=== PATIENT | male | born 2005 | race Caucasian/White ===

== ENCOUNTER 2024-12-30 02:00 | Emergency (ER) | payer BC, SELFPAY ==
--- NOTE | ~2024-12-30 | CT_ITS ---
CT of the Abdomen and Pelvis: Indication: Abdominal pain Technique: 2.5 mm axial scans were obtained through the abdomen and pelvis following intravenous adm inistration of 100 cc of Omnipaque 350. Dose reduction technique was used on this scan by utilizing a utomated exposure control and iterative reconstruction technique. The dose-length product (DLP) was 5 14.18 mGy-cm. Findings: Scans through the lung bases are unremarkable. The liver, spleen, pancreas, gallbladder, adrenals and kidneys are within normal limits. No evidence of aortic aneurysm. No lymphadenopathy. No bowel obstruction or bowel wall thickening. There is no evidence to suggest acute appendicitis. Images through the pelvis were performed. Urinary bladder unremarkable. No pelvic mass seen. No ascit es. Impression: No significant abnormalities seen. Reviewed, dictated and finalized at location . Impression: No significant abnormalities seen.
[2024-12-30 02:00] VITALS: BP 154/87; PULSE 64; RESP 17; TEMP 37; O2SAT 99
[2024-12-30 03:06] VITALS: BP 133/69; PULSE 66; RESP 14; O2SAT 100
--- OUTSIDE RECORDS SUMMARY | 2024-12-30 04:46 | XMS_ITS ---
Author Organization [facility] Address [address], [place] [address] Care Team Providers Care Portfolio Lead Name Role Phone Igor Alvarenga Primary Care Provider Kristin Dow Unavailable [phone] Allergies Allergen (clinical drug ingredient) Drug/Non Drug Allergy documented on EMR Reaction Allergy Type Onset Date Status Cat dander cats (uncoded) itchy eyes Allergy 05/14/2019 Ac tive REASON FOR VISIT ns, Pt. requesting routine check-up Medications Medication SIG (Take, Route, Frequency, Duration) Notes Start Date End Date Status Benzoyl Peroxide 5 % 1 application Exter екатерина Once a day for 30 days 06/28/2022 Not-Takin g Tretinoin 0.01 % 1 application in the evening to face Externally Once a day for 30 days 06/28/2022 Not-Taking Docusate Sodium 150 MG/15ML 5 ml as needed Orally twice a day for 30 day(s) 04/01/2017 Not-Taking Social History Tobacco Use: Social History Observation Description Date Details (start date - stop date) Never Smoker NA - NA - Question Answer Notes Did you have a drink containing alcohol in the p ast year? No Points 0 Interpretation Negative - Question Answer Notes Are you a: nonsmoker Vital Signs Temperature 96.3 degrees Fahrenheit 08/04/20 23 Blood pressure systolic 116 mm Hg 08/04/20 23 Blood pressure diastolic 73 mm Hg 023 Heart Rate 53 /min 08/04/2023 Respiratory Rate 20 /min 08/04/2023 Height 74.00 in 08/04/2023 Weight 189 lbs 08/04/2023 BMI 24.26 kg/m2 08/04/2023 BMI Percentile 69.46 % 08/04/2023 Height-cm 187.96 cm 08/04/2023 Weight-kg 85.73 kg 08/04/2023 Encounters Encounter Location Date Provider Diagnosis [facility] [address] [place] [address] 08/04/2023 Kristin Dow Adult general medical exam Z00.00 Assessments Encounter Date Diagnosis (ICD Code) Assessment Notes Treatment Notes Treatment Clinical Notes Section Notes 08/04/2023 Adult general medical exam (ICD-10 - Z00.00) School forms filled in. Plan Of Treatment Treatment Notes Assessment Notes Adult general medical exam School forms filled in. Next Appt Details Follow Up: prn, Reason: Progress Notes * ANDREW LIMOB: 4 (18 yo M)Acc No.[id number]:08/04/2023 Progress Notes Patient: MELANIE GARCIA Provider: Jacobo DOW NP :2005 A ge:18 Y S ex:Male Date:08/04/2023 Phone: Address:[address] [place], [place] Pcp:Igor Alvarenga Subjective: * Chief Complaints: * N sPt. requesting routine check-up * ROS: G eneral/Constitutional: Chills d enies. F atigue d enies. F ever d enies. H eadache d enies. W eight gain d enies. W eight loss d enies. A llergy/Immunology: Itching d enies. R gautam d enies. O phthalmologic: Blurred vision d enies. D iminished visual acuity d enies. D ischarge d enies. D ry eye d enies. F lashes of light in the visual field d enies. F loaters in the visual field d enies. I tching and redness d enies. P ain d enies. E NT: Decreased hearing d enies. D ifficulty swallowing d enies. E ar pain d enies. S inus pain d enies. S ore throat d enies. E ndocrine: Cold intolerance d enies. D izziness d enies. E xcessive sweating d enies. E xcessive thirst d enies. F requent urination d enies. H eat intolerance d enies. W eight loss d enies. R espiratory: Chest pain d enies. C ough d enies. S hortness of breath at rest d enies. S hortness of breath with exertion d enies. S putum production d enies. W heezing d enies. C ardiovascular: Chest pain at rest d enies. C hest pain with exertion denies. D yspnea on exertion d enies. I rregular heartbeat d enies. P alpitations d enies. S hortness of breath d enies. G astrointestinal: Abdominal pain d enies. B lood in stool d enies. Constipation d enies. D ecreased appetite d enies. D iarrhea d enies. D ifficulty swallowing d enies. H eartburn d enies. H ematemesis d enies. N ausea d enies. R ectal bleeding d enies. V omiting d enies. H ematology: Easy bruising d enies. P rolonged bleeding d enies. M en Only: Difficulty initiating stream d enies. D ribbling after urination d enies. H hosea testicle d enies. L ump in groin d enies. P enile discharge d enies. R gautam or blisters on penis d enies. S crotal pain d enies. Scrotal swelling d enies. G enitourinary: Blood in urine d enies. D ifficulty urinating d enies. F requent urination d enies. P ainful urination d enies. I ncontinence of Urine d enies. M usculoskeletal: Carpal tunnel d enies. L eg cramps d enies. P ainful joints d enies. S ciatica d enies. S wollen joints d enies. P eripheral Vascular: Cold extremities d enies. D ecreased sensation in extremities d enies. P ain/cramping in legs after exertion d enies. U lceration of feet denies. P odiatric: Ankle swelling d enies. D ifficulty walking d enies. F oot numbness d enies. S ole pain d enies. S kin: Acne d enies. D ry skin d enies. E czema d enies. I tching d enies. S kin lesion(s) d enies. N eurologic: Balance difficulty d enies. D ifficulty speaking d enies. D izziness d enies. F ainting d enies. G ait abnormality d enies. Headache d enies. S eizures d enies. T ingling/Numbness d enies. T remor denies. P sychiatric: Anxiety d enies. S tressors d enies. S ubstance abuse d enies. S uicidal thoughts d enies. * Medical History: * Surgical History: D enies Past Surgical History * Hospitalization/Major Diagno stic Procedure: D enies Past Hospitalization * Family History: N on-Contributory. * Social History: T obacco Use: S moking A re you a: n onsmoker Q UALITY MEASURES: I nfluenza Vaccine: RECEIVED ON 06/28/2022 IN OFFICE. Nutritional Assessment: ADVISED ON HEALTH EFFECTS OF FAST FOOD & FRIED FOODS, PATIENT ADVISED ON NUTRITIONAL NEEDS, D/W PT TYPE OF DIET, D/W PT TO EXERCISE BREANNE REGUALR BASIS FOR A HEALTHIER LIFESTYLE. Overall Assessment: HEALTHY WEIGHT, EDUCATION MATERIALS GIVEN, COUNSELED PATIENT, ADVISED EXERCISE, MONITOR WEIGHT. D rugs/Alcohol: D rugs H ave you used drugs other than those for medical reasons in the past 12 months? N o Alcohol Screen D id you have a drink containing alcohol in the past year? N o P oints 0 I nterpretation N egative * Medications: N ot-TakingDocusate Sodium 150 MG/15ML Liquid 5 ml as needed Orally twice a day Tretinoin 0.01 % Gel 1 application in the evening to face Externally Once a day Benzoyl Peroxide 5 % Gel 1 application Externally Once a day Medication List reviewed and reconciled with the patientNot-Taking Docusate Sodium 150 MG/15ML Liquid 5 ml as needed Orally twice a day Not-Taking Tretinoin 0.01 % Gel 1 application in the evening to face Externally Once a day Not-Taking Benzoyl Peroxide 5 % Gel 1 application Externally Once a day Medication List reviewed and reconciled with the patient * Allergies: c ats: itchy eyes - Allergy - Onset Date 05/14/2019no[Allergies Verified] Objective: * Vitals: W t:189, Ht: 74.00, BMI:24.26, Temp:96.3, BP:116/73mm Hg, HR:53, RR:20, Ht-cm: 187.96, Wt-k.73, Wt %: 88.28, BMI %: 69.46, Ht %: 94.47. * Examination: G eneral Examination: GENERAL APPEARANCE: n ormal, alert, well hydrated, in no distress, pleasant, well nourished, well developed. HEAD: n ormocephalic, atraumatic, no scalp lesions. EYES: B OTH EYES, normal, pupils equal, round, reactive to light and accommodation, sclera non-icteric. EARS: L EFT EAR, normal, tympanic membrane intact, clear, RIGHT EAR, normal, tympanic membrane intact, clear. NOSE: n o lesions, sinuses nontender bilaterally. ORAL CAVITY: m ucosa moist, no lesions. THROAT: n ormal, no erythema, no exudate, pharynx normal, tonsils normal, uvula midline. NECK/THYROID: n josé miguel supple, full range of motion, no carotid bruit, no cervical lymphadenopathy, no jugular venous distention, thyroid normal. LYMPH NODES: n o palpable adenopathy. SKIN: g ood turgor. HEART: S 1, S2 normal, regular rate and rhythm, no S3, S4, no murmurs, rubs, gallops. LUNGS: c lear to auscultation bilaterally, no wheezes, rales, rhonchi. CHEST: n ormal, no gross rib deformity. ABDOMEN: s oft, nontender, nondistended, no organomegaly, no masses palpable, bowel sounds present. BACK: n ormal, full range of motion, spine nontender to palpation. MUSCULOSKELETAL: n ormal. EXTREMITIES: n o edema, good capillary refill in nail beds. PERIPHERAL PULSES: 2 + throughout. NEUROLOGIC: n onfocal, alert and oriented, Babinski absent, cerebellar function normal, cognitive exam grossly normal, cooperative with exam, cranial nerves 2-12 grossly intact, deep tendon reflexes 2+ symmetrical, gait normal, motor strength normal upper and lower extremities, no rigidity, no tremor, normal strength, tone and reflexes, sensory exam intact. PODIATRIC: N ORMAL, BILATERALLY. PSYCH: a lert, oriented, cognitive function intact, judgement and insight good, speech clear. Assessment: * Assessment: 1. A dult general medical exam - Z00.00 (Primary) Plan: * Treatment: * Procedure Codes: * Preventive Medicine: Nurse Practitioner addendum: Jessica solis seen and examined independently by KRISTIN DOW NFernandoPFernando marks assessment and treatment as written above,Kristin Dow Nurse Practioner Jessica ramirezcarol has been seen and examined independently of the Nurse Practitioner/ Physician Coach Builder I agree with the clinical exam, ROS and assessment and plan with the addition of my addendum above. Over half of the time was devoted to counseling and/or coordination of care. Leilani Germain * Follow Up: p rn * Images: Care Plan Details* * HANDISE COORDINATOR Sign off status: Completed true * Provider: Jacobo DOW NP Date: 10/05/2022 Generated for Anel jha/Era/Tuanitting on: 0 12/30/2024 04:45 AM CDT History and Physical Notes * Examination Category Sub-Category Detail Notes Category Not es General Examination GENERAL APPEARANCE: normal, alert, well hydrated, in no distress, pleasant, well nourished, well developed HEAD: normocephalic, atrau matic, no scalp lesions EYES: BOTH EYES, normal, p upils equal, round, reactive to light and accommodation, sclera non-icteric EARS: LEFT EAR, normal, ty mpanic membrane intact, clear, RIGHT EAR, normal, tympanic membrane intact, clear NOSE: no lesions, sinuses nontender bilaterally THROAT: normal, no erythema, no exudate, pharynx normal, tonsils normal, uvula midline NECK/THYROID: neck supple, full ra nge of motion, no carotid bruit, no cervical lymphadenopathy, no jugular venous distention, thyroid normal HEART: S1, S2 normal, regul ar rate and rhythm, no S3, S4, no murmurs, rubs, gallops CHEST: normal, no gross rib deformity LUNGS: clear to auscultatio n bilaterally, no wheezes, rales, rhonchi ABDOMEN: soft, nontender, non distended, no organomegaly , no masses palpable, bowel sounds present NEUROLOGIC: nonfocal, alert and oriented, Babinski absent, cerebellar function normal, cognitive exam grossly normal, cooperative with exam, cranial nerves 2-12 grossly intact, deep tendon reflexes 2+ symmetrical, gait normal, motor strength normal upper and lower extremities, no rigidity, no tremor, normal strength, tone and reflexes, sensory exam intact SKIN: good turgor EXTREMITIES: no edema, good capil pieter refill in nail beds PERIPHERAL PULSES: 2+ throughout BACK: normal, full range o f motion, spine nontender to palpation MUSCULOSKELETAL: normal LYMPH NODES: no palpable adenopat hy PSYCH: alert, oriented, cog nitive function intact, judgement and insight good, speech clear ORAL CAVITY: mucosa moist, no les ions PODIATRIC: NORMAL, BILATERALLY
--- OUTSIDE RECORDS SUMMARY | 2024-12-30 04:46 | XMS_ITS | Clinical Summary ---
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 Gender Identity Not on file Sexual Orientation Not on file Plan of Treatment Health Maintenance Due Date Last Done Comments MMR VACCINES (1 of 1 - Stand hosea series) 2005 DTAP/TD/TDAP (1 - Tdap) 2011 VARICELLA VACCINES (1 of 2 - 13+ 2-dose series) 2017 HPV VACCINE (1 - Male 3-dose series) 2019 MENINGOCOCCAL B VACCINES (1 of 2 - Standard) 2020 HEPATITIS B VACCINES (1 of 3 - 19+ 3-dose series) 2023 COVID-19 VACCINE ( - 2023-2 5 season) 2024 INFLUENZA VACCINES (9 YEARS AND OLDER) 04/17/2024 HEPATITIS A VACCINE Aged Out No longe r eligible based on patient's age to complete this topic MENINGOCOCCAL VACCINES Aged Out No lo nger eligible based on patient's age to complete this topic POLIO VACCINE Aged Out No longer elig ible based on patient's age to complete this topic Pneumococcal Vaccine Aged Out No long er eligible based on patient's age to complete this topic RSV (NIRSEVIMAB) Aged Out No longer e ligible based on patient's age to complete this topic Insurance MEDICAID - [place] Care Teams Library Clerk Talking Books Relationship Specialty Start Date End Date Kelsey Rebollar MD PCP - General 06/21/07
--- OUTSIDE RECORDS SUMMARY | 2024-12-30 04:46 | XMS_ITS ---
Author Organization [facility] Address [address], [place] [address] Care Team Providers Care Video Operator Name Role Phone Igor Alvarenga Primary Care Provider REASON FOR VISIT ov at [facility] Encounters Encounter Location Date Provider Diagnosis [facility] [address] [place] [address] 03/10/2024 Igor Alvarenga Plan Of Treatment No Information Progress Notes * Manuela LIMOB: 4 (19 yo M)Acc No.[id number]:03/10/2024 Progress Notes Patient: Ramez GARCIA Provider: Chapo Alvarenga MD :2005 A ge:18 Y S ex:Male Date:03/10/2024 Phone: Address:[address], [phone] Subjective: * Chief Complaints: * 1 . Ov at [facility]. * Medical History: Objective: * Vitals: Assessment: Plan: * Treatment: * Care Plan Details* * Electronic signature of Con Alvarenga MD on 12/30/2024 at 04:46 AM CDT Sign off status: Pending * Provider: Chapo Alvarenga MD Date: 03/10/2024 Generated for Printi ng/Faidaliag/eTransmitting on: 12/30/2024 04:46 AM CDT
--- OUTSIDE RECORDS SUMMARY | 2024-12-30 04:46 | XMS_ITS | Patient Health Record ---
Author Organization [facility] Address [address], [place] [address] Care Team Providers Care Tire Center Supervisor Name Role Phone Igor Alvarenga Primary Care Provider [phone] Prema Atkins Unavailable [phone] Allergies Allergen (clinical drug ingredient) Drug/Non Drug Allergy documented on EMR Reaction Allergy Type Onset Date Status Cat dander cats (uncoded) itchy eyes Allergy 05/14/2019 Ac tive Reason For Referral Reason eval and treat Diagnosis 1 Routine eye exam (Z0 1.00) Referral Organization [facility] Referring Provider First Name Igor Referring Provider Last Name Lyle Referring Provider Speciality Family Pra ctice Referred Provider Dieter Stern Referred Provider Specialty Ophthalmolog y General Notes gv Referral Priority Routine Medications Medication SIG (Take, Route, Frequency, Duration) [...] a day for 30 day(s) 04/01/2017 Not-Taking Immunizations Vaccine Route Administration Date Status Comme nts Covid 19 Pfizer BIVALENT IM Intramuscular 06/28/2022 Administered Influenza Vaccine Fluzone Quadrivalent (Private) IM Intramuscular 06/28/2022 Administered Meningoccal (migration) IM Intramuscular 05/14/2019 Administered MA ,sourcename : New immunization record ,immstatus : Complete Meningoccal (migration) IM Intramuscular 07/30/2019 Administered MA ,sourcename : New immunization record ,immstatus : Complete Social History Tobacco Use: Social History Observation Description Date Details (start date - stop date) Never Smoker NA - NA Tobacco Control (Standard) Question Answer Notes Tobacco use: Nonsmoker Alcohol Use AUDIT-C (Standard) Question Answer Notes Did you have a drink containing alcohol in the p ast year? No Points 0 Interpretation Negative Problems Problem Type SNOMED Code ICD Code Onset Dates Problem Status W/U Status Risk Notes Problem 39045462 Constipation, unspecified constipation type (K59.00) Active confirmed Problem Problem, abnormal examination (23699936) Encounter for general adult medical examination with abnormal findings (Z00.01) 0 Active confirmed Problem Child health medical examination (297513552) Encounter for routine child health examination with abnormal findings (Z00.121) 9 Active confirmed Problem Vaccination given (983094414) Encounter for immunization (Z23) 9 Active confirmed Problem Acne (35827773) Acne (L70.9) 0 Active confirmed Problem Well child visit (procedure) (154351940) Encounter for routine child health examination (Z00.129) 1 Active confirmed Vital Signs Heart Rate 80 /min 12/09/2024 Temperature 97.4 degrees Fahrenheit 12/09/2024 Respiratory Rate 20 /min 12/09/2024 Height-cm 187.96 cm 12/09/2024 Blood pressure diastolic 70 mm Hg 12/09/2024 Weight-kg 93.17 kg 12/09/2024 Height 74.00 in 12/09/2024 Blood pressure systolic 120 mm Hg 12/09/2024 Weight 205.4 lbs 12/09/2024 BMI 26.37 kg/m2 12/09/2024 Encounters Encounter Location Date Provider Diagnosis [facility] [address] [place] [address] 12/09/2024 Prema Atkins Routine eye exam Z01 .00 ; Routine medical exam Z00.00 ; Inappropriate diet and eating habits Z72.4 ; Lack of physical exercise Z72.3 and Encounter for screening for depression Z13.31 Assessments Encounter Date Diagnosis (ICD Code) Assessment Notes Treatment Notes Treatment Clinical Notes Section Notes 12/09/2024 Routine medical exam (ICD-10 - Z00.00) exam within normal limits 12/09/2024 Routine eye exam (ICD-10 - Z01.00) 12/09/2024 Inappropriate diet and eating habits (ICD-10 - Z72.4) 12/09/2024 Lack of physical exercise (ICD-10 - Z72.3) 12/09/2024 Encounter for screening for depression (ICD-10 - Z13.31) Plan Of Treatment No Information Insurance Providers Payer Name Payer Address Payer Phone Subscriber Number Group Number Insured Name Patient Relationship to Insured Coverage Start Date Coverage End Date [address] [address] [place] [address] [phone] [id number] Ramez Nash Self - patient is the insured 0 Medical (General) History Surgical History Surgery Date(Month/Year)
--- OUTSIDE RECORDS SUMMARY | 2024-12-30 04:46 | XMS_ITS | Referral Summary ---
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
--- OUTSIDE RECORDS SUMMARY | 2024-12-30 04:46 | XMS_ITS ---
Author Organization [facility] Address [address] [place], [place] [id number] Care Team Providers Care Tin Flipper Name Role Phone Igor Alvarenga Primary Care Provider Prema Atkins Unavailable [phone] Allergies Allergen (clinical drug ingredient) Drug/Non Drug Allergy documented on EMR Reaction Allergy Type Onset Date Status Cat dander cats (uncoded) itchy eyes Allergy 05/14/2019 Ac tive Reason For Referral Reason eval and treat Diagnosis 1 Routine eye exam (Z0 1.00) Referral Organization [facility] RE Referring Provider First Name Igor Referring Provider Last Name Lyle Referring Provider Speciality Family Pra ctice Referred Provider Dieter Stern Referred Provider Specialty Ophthalmolog y General Notes gv Referral Priority Routine REASON FOR VISIT SS, check up, pt would like referral for eye exam, pt previously told he might need glasses Medications Medication SIG (Take, Route, Frequency, Duration) [...] ast year? No Points 0 Interpretation Negative Vital Signs Temperature 97.4 degrees Fahrenheit 12/10/19 Blood pressure systolic 120 mm Hg 12/10/19 Blood pressure diastolic 70 mm Hg 025 Heart Rate 80 /min 12/09/2024 Respiratory Rate 20 /min 12/09/2024 Height 74.00 in 12/09/2024 Weight 205.4 lbs 12/09/2024 BMI 26.37 kg/m2 12/09/2024 Height-cm 187.96 cm 12/09/2024 Weight-kg 93.17 kg 12/09/2024 Encounters Encounter Location Date Provider Diagnosis [facility] [address] [place] [address] 12/09/2024 Prema Atkins Routine eye exam Z01 .00 ; Routine medical exam Z00.00 ; Inappropriate diet and eating habits Z72.4 ; Lack of physical exercise Z72.3 and Encounter for screening for depression Z13.31 Assessments Encounter Date Diagnosis (ICD Code) Assessment Notes Treatment Notes Treatment Clinical Notes Section Notes 12/09/2024 Routine eye exam (ICD-10 - Z01.00) 12/09/2024 Routine medical exam (ICD-10 - Z00.00) exam within normal limits 12/09/2024 Inappropriate diet and eating habits (ICD-10 - Z72.4) 12/09/2024 Lack of physical exercise (ICD-10 - Z72.3) 12/09/2024 Encounter for screening for depression (ICD-10 - Z13.31) Plan Of Treatment Treatment Notes Assessment Notes Routine medical exam exam within normal limits Referrals Referral Date Details 12/09/2024 12/09/2024, eval and treatDieter Next Appt Details Follow Up: prn, Reason: Progress Notes * Alex LIMDannyOB: 4 (19 yo M)Acc No.[id number]:12/09/2024 Progress Notes Patient: Ramez GARCIA Provider: GARY Siegel :2005 A ge:19 Y S ex:Male Date:12/09/2024 Phone: Address:[address] [place] [address], [place], [id number] Pcp:Igor Alvarenga Subjective: * Chief Complaints: * S Camilla upLorenzo would like referral for eye exam, pt previously told he might need glasses * HPI: D epression Screening: PHQ-9 L ittle interest or pleasure in doing things Not at all F eeling down, depressed, or hopeless N ot at all T rouble falling or staying asleep, or sleeping too much N ot at all F eeling tired or having little energy N ot at all P oor appetite or overeating N ot at all F eeling bad about yourself or that you are a failure, or have let yourself or your family down N ot at all T rouble concentrating on things, such as reading the newspaper or watching television N ot at all M oving or speaking so slowly that other people could have noticed; or the opposite, being so fidgety or restless that you have been moving around a lot more than usual N ot at all T houghts that you would be better off or of hurting yourself in some way N ot at all T otal Score 0 * ROS: G eneral/Constitutional: - C hills d enies. F atigue d enies. F ever denies. H eadache d enies. W eight gain d enies. W eight loss d enies.. A llergy/Immunology: - I tching d enies. R gautam d enies.. O phthalmologic: - B lurred vision d enies. D iminished visual acuity d enies. D ischarge d enies. D ry eye d enies. F lashes of light in the visual field d enies. F loaters in the visual field d enies. I tching and redness of the eyelid d enies. Pain denies.. E NT: - D ecreased hearing d enies. D ifficulty swallowing d enies. E ar pain d enies. S inus pain d enies. S ore throat d enies.. E ndocrine: - C old intolerance d enies. D izziness d enies. E xcessive sweating d enies. E xcessive thirst d enies. F requent urination denies. H eat intolerance d enies. W eight loss d enies.. R espiratory: - C hest pain d enies. C ough d enies. S hortness of breath at rest d enies. S hortness of breath with exertion denies. S putum production d enies. W heezing d enies.. C ardiovascular: - C hest pain at rest d enies. C hest pain with exertion d enies. D yspnea on exertion d enies. I rregular heartbeat d enies. P alpitations d enies. S hortness of breath d enies.. G astrointestinal: - A bdominal pain denies. B lood in stool d enies. Constipation d enies. D ecreased appetite d enies. D iarrhea d enies. D ifficulty swallowing d enies. H eartburn d enies. Hematemesis denies. N ausea d enies. R ectal bleeding d enies. V omiting d enies.. H ematology: - E asy bruising d enies. P rolonged bleeding d enies.. M en Only: - D ifficulty initiating stream d enies. D ribbling after urination d enies. H hosea testicle d enies. L ump in groin d enies. P enile discharge d enies. R gautam or blisters on penis d enies. S crotal pain d enies. S crotal swelling d enies.. G enitourinary: - B lood in the urine d enies. D ifficulty urinating d enies. F requent urination d enies. P ainful urination d enies. I ncontinence of urine d enies.. M usculoskeletal: - C arpal tunnel d enies. L eg cramps d enies. Painful joints d enies. S ciatica d enies. S wollen joints d enies.. P eripheral Vascular: - C old extremities d enies. D ecreased sensation in extremities d enies. P ain/cramping in legs after exertion d enies. U lceration of feet d enies.. P odiatric: - A nkle pain d enies. D ifficulty walking d enies. F oot numbness d enies. S ole pain d enies.. S kin: - A cne d enies. D ry skin d enies. E czema denies. I tching d enies. S kin lesion(s) d enies.. N eurologic: - B alance difficulty d enies. D ifficulty speaking denies. D izziness d enies. F ainting d enies. G ait abnormality d enies. H eadache d enies. S eizures d enies. T ingling/numbness d enies. T remor d enies.. P sychiatric: - A nxiety d enies. S tressors d enies. S ubstance abuse d enies. S uicidal thoughts d enies.. * Medical History: * Surgical History: D enies Past Surgical History * Hospitalization/Major Diagno stic Procedure: D enies Past Hospitalization * Family History: M other: alive. F ather: unknown. P aternal aunt: alive, diagnosed with Diabetes. N on-Contributory. * Social History: A nnual Depression Screening/SDOH: D epression Screening: Done on 12/09/2024. Q uality Measures: N utritional Assessment: Advised on health effects of fast food & fried foods, patient advised on nutritional needs, d/w pt type of diet, d/w pt to exercise on a regular basis for a healthier lifestyle. Overall Assessment: Overweight BMI 25-30 -education materials given -counseled patient -advised exercise -monitor weight. T obacco Use: T obacco Control (Standard) T obacco use: N onsmoker D rugs Use: D rug Use H ave you used drugs other than those for medical reasons in the past 12 months? N o A lcohol Use: A lcohol Use AUDIT-C (Standard) D id you have a drink containing [...] Date 05/14/2019no[Allergies Verified] Objective: * Vitals: W t:205.4, Ht: 74.00, BMI:26.37, Temp:97.4, BP:120/70mm Hg, HR:80, RR:20, Ht-cm: 187.96, Wt-k.17. * Examination: G eneral Examination: GENERAL APPEARANCE: [...] n o palpable adenopathy. SKIN: g ood turgor, warm and dry. HEART: S 1, S2 normal, regular rate and rhythm, no S3, S4, no murmurs, rubs, gallops. LUNGS: c lear to auscultation bilaterally, no wheezes, rales, rhonchi. CHEST: n ormal, no gross rib deformity. BREASTS: n ot examined. ABDOMEN: s oft, nontender, nondistended, no organomegaly, no masses palpable, bowel sounds present. BACK: n ormal, full range of motion, spine nontender to palpation. MALE GENITOURINARY: d eferred. MUSCULOSKELETAL: n ormal. EXTREMITIES: n o edema, good capillary refill in nail beds. PERIPHERAL PULSES: 2 + throughout. NEUROLOGIC: n onfocal, alert and oriented, cranial nerves 2-12 grossly intact. PSYCH: a lert, oriented, cognitive function intact, judgement and insight good, speech clear. Assessment: * Assessment: 1. R outine medical exam - Z00.00 2 . R outine eye exam - Z01.00 (Primary) 3. I nappropriate diet and eating habits - Z72.4 4 . L ack of physical exercise - Z72.3 5 . E ncounter for screening for depression - Z13.31 Plan: * Treatment: 2. R outine medical exam Notes: exam within normal limits * Procedure Codes: G 0136 Adm of soc dtr assess 5-15 [id number] NEG SCR D PT NOT ELIG F/U/PLN [id number] Scrning perf and negative * Preventive Medicine: Nurse Practitioner addendum: Jessica solis seen and examined independently by Alex Nova , see assessment and treatment as written above, Alex Nova. Jessica ramirezcarol has been seen and examined independently of the Nurse Practitioner/ Physician Livestock Auctioneer I agree with the clinical exam, ROS and assessment and plan with the addition of my addendum above. Over half of the time was devoted to counseling and/or coordination of care. H moo Alvarenga MD Well Visit Preventive Screening: A spirin Use >45 yrs N ot Indicated due to age. C olorectal Screening >50 yrs N /A-due to age. D iabetes Screening >40 yrs N /A-due to age. D iet Counseling A dvised on health effects of fast food and fried foods, patient advised on nutritional needs, d/w pt type of diet, d/w pt to exercise on a regular basis for a healthier lifestyle. I mmunizations F iris shot n/a, Zoster vaccine, Not indicated due to age, Pneumonia Shot, Not indicated due to age. L jojo Cancer Screening >50 yrs N /A- Not indicated due to age. A AA Screening >65 N /A-not indicated due to age. M ammogram Screening >40yrs N /A. C ervical Cancer Screening >21 yrs N /A. C holesterol Screening >21yrs N /A-not indicated due to age. D epression Screening D epressed/Hopeless, No, Interest/pleasure in doing things, Yes, Good mood effect, Yes, Normal appearance, Yes. A nnual Wellness Visit Completed on 0 12/09/2024 SDOH: S JUAN CARLOS Screening 1 . In the past 12 months, did you ever eat less than you felt you should because there was not enough money for food? No, 2. In the Past 12 months, has the [employer], gas, oil or water [employer] threatened to shut off your services in your home? No, 3. Are you worried that in the next 2 months, you may not have stable housing? No, 4. Do problems getting childcare make it difficult for you to work or study? No, 5. In the last 12 months, have you needed to see a doctor but could not because of the cost? No, 6. In the last 12 months, have you ever had to go without healthcare because you did not have a way to get there? No, 7. Do you feel like you could benefit from counseling services related to behavioral health? No, 8. Are you interested in discussion tobacco cessation, or alcohol or substance abuse supportive services? No. * Follow Up: p rn * Care Plan Details* * Sign off status: Completed true * Provider: GARY Siegel Date: 0 12/09/2024 Generated for Anel jha/Era/Tuanitting on: 0 12/30/2024 04:45 AM CDT History and Physical Notes * HPI (History of Present Illness) Category Sub-Category Detail Notes Category Not es Depression Screening PHQ-9 Little inte rest or pleasure in doing things: Not at all Feeling down, depressed, or hopeless: No t at all Trouble falling or staying asleep, or sl eeping too much: Not at all Feeling tired or having little energy: N ot at all Poor appetite or overeating: Not at all Feeling bad about yourself o r that you are a failure, or have let yourself or your family down: Not at all Trouble concentrating on thi ngs, such as reading the newspaper or watching television: Not at all Moving or speaking so slowly that other people could have noticed; or the opposite, being so fidgety or restless that you have been moving around a lot more than usual: Not at all Thoughts that you would be b scooter off or of hurting yourself in some way: Not at all Total Score: 0 Examination Category Sub-Category Detail Notes Category Not [...] rhonchi ABDOMEN: soft, nontender, non distended, no organomegaly, no masses palpable, bowel sounds present NEUROLOGIC: nonfocal, alert and oriented, cranial nerves 2-12 grossly intact SKIN: good turgor, warm an d dry EXTREMITIES: no edema, good capil pieter refill in nail beds PERIPHERAL PULSES: 2+ throughout BACK: normal, full range o f motion, spine nontender to palpation BREASTS: not examined MUSCULOSKELETAL: normal MALE GENITOURINARY: deferred LYMPH NODES: no palpable adenopat hy PSYCH: alert, oriented, cog nitive function intact, judgement and insight good, speech clear ORAL CAVITY: mucosa moist, no les ions Consultation Request Notes Referral Date Referring Provider Referred Provider Not es 12/09/2024 Igor Alvarenga, Dieter benoit and treat
[2024-12-30 04:47] LABS: Basophils Percent Auto 0.4 % (0.2-1.2); Eosinophils Absolute Auto 0.1 K/mm3 (0-0.3); Eosinophils Percent Auto 1.1 % (0-4.4); Hematocrit 47.5 % (42.0-52.0); Hemoglobin 16.1 g/dL (14.0-18.0); Immature Granulocyte Absolute 0.02 K/mm3 (0.00-0.031); Immature Granulocyte Percent A 0.2 % (0-0.5); Lymphocytes Absolute Auto 0.97 K/mm3 (0.9-3.2); Lymphocytes Percent Auto 11.5 % (18.3-44.2); Mean Corpuscular HGB Conc 33.9 g/dl (32-36); Mean Corpuscular Hemoglobin 30.1 pg (26-34); Mean Platelet Volume 10.9 fl (7.4-10.4); Monocytes Absolute Auto 0.6 K/mm3 (0.1-0.6); Monocytes Percent Auto 6.9 % (2.6-8.5); Neutrophils Absolute Auto 6.7 K/mm3 (1.3-6.7); Neutrophils Percent Auto 79.9 % (45.5-73.1); Platelet Count Result 222 k/mm3 (150-375); Red Blood Count 5.34 M/mm3 (4.6-6.20); White Blood Count 8.4 K/mm3 (4.5-10.0)
--- OUTSIDE RECORDS SUMMARY | 2024-12-30 04:47 | XMS_ITS | Clinical Summary ---
Author Organization [facility] Address [address] [place] [address] Care Team Providers Care Fisheries Officer Name Role Phone Kelsey Rebollar MD Primary Care Provider [phone] Source Comments [facility] is the largest [facility] system based in [place]. We offer more than 150 locations around the [facility], in communities large and small, so health care access is convenient. With 19 [facility] hospitals, over 25 long-term care and alf facilities, dozens of physician offices and health centers, home care, hospice, behavioral health services and more. Currently six of our Hospitals are live on the [employer] system, they are: [facility] Allergies No known active allergies Medications Medication Sig Dispensed Refills Start Date End Date Status ibuprofen (ADVIL,MOTRIN) 400 MG tablet Take 1 tablet by mouth every 6 (six) hours as needed for Pain. 20 tablet 0 12/26/2016 Active Active Problems No known active problems Social History Tobacco Use Types Packs/Day Years Used Date Smoking Tobacco: Never Assessed Sex and Gender Information Value Date Recorded Sex Assigned at Not on file Gender Identity Not on file Sexual Orientation Not on file Last Filed Vital Signs Vital Sign Reading Time Taken Comments Blood Pressure - - Pulse 78 12/26/2016 1:56 PM CDT Temperature 37.1 C (98.7 F) 12/26/2016 1:56 PM CDT Respiratory Rate 18 12/26/2016 1:56 PM CDT Oxygen Saturation 100% 12/26/2016 1:56 PM CDT Inhaled Oxygen Concentration - - Weight 63.2 kg (139 lb 5.3 oz) 12/26/2016 1:54 P M CDT Height - - Body Mass Index - - Plan of Treatment Not on file Care Teams Fisheries Officer Relationship Specialty Start Date End Date Kelsey Rebollar MD [address] [address] PCP - General Pediatrics 12/26/16
[2024-12-30 04:48] LABS: Add Urine Microscopic? NO; Alanine Aminotransferase 26 U/L (6-50); Albumin Level 4.4 g/dL (3.5-5.1); Alkaline Phosphatase 75 U/L (38-126); Anion Gap 11 mmol/L (4-12); Appearance Urine Clear (Clear); Aspartate Amino Transferase 32 U/L (17-59); Bilirubin Urine Negative (Negative); Bilirubin,Total 0.6 mg/dL (0.2-1.3); Blood Urea Nitrogen 11 mg/dL (9-20); Blood Urine Negative (Negative); Calcium 9.1 mg/dL (8.4-10.2); Carbon Dioxide 24 mmol/L (22-30); Chloride 104 mmol/L (98-107); Color Urine Yellow (Yellow); Estimated Glomerular Filt Rate > 60; Glucose 121 mg/dL (65-110); Glucose Urine UA Negative (Negative); Ketones Urine Trace mg/dL (Negative); Leukocyte Esterase Ur Negative LEU/UL (Negative); Lipase 37 U/L (23-300); Nitrate Urine Negative (Negative); Potassium 3.8 mmol/L (3.4-5.0); Protein Urine Negative (Negative); Sodium 139 mmol/L (137-145)
[2024-12-30 04:59] VITALS: BP 116/67; PULSE 66; RESP 17; O2SAT 97
--- NOTE | 2024-12-30 05:00 | PC.NURSE ---
RN gave pt 20 mg of Bentyl PO, 20 mg of Pepcid PO, and Mylanta 30 mg PO all at 02:06 this morning during down time. See paper order from . RN gave pt 4 mg of Morphine via IV at 04:16 during down time. See paper order from .
--- NOTE | 2024-12-30 05:01 | ED_ITS ---
HPI - Abdominal Pain General Stated Complaint: Abdominal Pain History of Present Illness HPI narrative: 19-year-old otherwise healthy male presenting to the emergency department for right upper quadrant and epigastric abdominal pain starting after eating some food at a movie theater. States. The pain is intermittent in nature. No vomiting or nausea. States that he took a Tums at home with some intermittent low relief of symptoms but the symptoms returned prompting him to come to the ER. No fever chills, no diarrhea constipation, no history of abdominal surgeries. No trauma or injury. No chest pain or shortness a breath. Related Data Allergies Allergy/AdvReac Type Severity Reaction Status Date / Time No Known Allergies Allergy Verified 12/30/24 05:00 Review of Systems 2 Review of Systems: As reviewed above in HPI Exam 2 Narrative: GENERAL: [Well-appearing, well-nourished, and in no acute distress.] HEAD: [Normocephalic, atraumatic.] EYES: [PERRLA and EOMI.] ENT: Nares clear, no rhinorrhea or epistaxis. Mucous membranes moist. NECK: Supple. CHEST: [Clear to auscultation. No respiratory distress.] HEART: [Regular rate and rhythm]. No murmur heard. [Normal peripheral pulses.] ABDOMEN: [Soft, nondistended], [nontender], [No rigidity or guarding] EXTREMITIES: Normal range of motion. [No edema.] SKIN: Warm, dry, no rash. NEURO: [No focal deficits]. Alert and oriented [x3.] PSYCH: [Normal mood and affect.] MDM - Abdominal Pain MDM Narrative Medical decision making narrative: Patient is seen during EMR down time and please see scanned in records for other details of care and orders. 19-year-old otherwise healthy male presenting with right upper quadrant epigastric pain after eating some food. Patient has no history of gallstones or cholelithiasis. No history of any trauma or injury. He was otherwise in his normal state of health. Vital signs are reassuring. He has a soft nontender nondistended abdomen. Considerations presently for gastritis, gastroenteritis, renal colic, cholecystitis, gallbladder colic. Low suspicion pancreatitis or severe intra-abdominal infection. Workup ordered including CBC, CMP, urinalysis, lipase. He was given 20 mg Bentyl p.o., 20 mg Pepcid p.o., 30 mL of Maalox p.o. and re-evaluated. Initially patient had improvement in symptoms however he states that the symptoms came back during his ER visit here well laboratory studies are pending. His laboratory studies are all normal without any leukocytosis, anemia, LFT elevations, kidney dysfunction or electrolyte derangements. Given his persistent pain symptoms a CT scan was ordered he was provided 4 mg of IV morphine. Patient CT scan shows no acute abnormalities. Patient is safe for discharge home at this time given his unremarkable labs and normal CT. Will send him home with symptom controlling medications. Medical Records Attestation: I reviewed the patient's medical records. Lab Data Attestation: I reviewed the patient's lab results. 12/30/24 02:15 12/30/24 02:15 Labs: Lab Results 12/30/24 Range/Units 02:15 WBC 8.4 (4.5-10.0) K/mm3 RBC 5.34 (4.6-6.20) M/mm3 Hgb 16.1 (14.0-18.0) g/dL Hct 47.5 (42.0-52.0) % MCV 89.0 (80-100) fl MCH 30.1 (26-34) pg MCHC 33.9 (32-36) g/dl RDW 12.0 (11.5-14.5) % Plt Count 222 (150-375) k/mm3 MPV 10.9 H (7.4-10.4) fl Immature Gran % (Auto) 0.2 (0-0.5) % Neut % (Auto) 79.9 H (45.5-73.1) % Lymph % (Auto) 11.5 L (18.3-44.2) % [place] % (Auto) 6.9 (2.6-8.5) % Eos % (Auto) 1.1 (0-4.4) % Baso % (Auto) 0.4 (0.2-1.2) % Lymph # (Auto) 0.97 (0.9-3.2) K/mm3 [place] # (Auto) 0.6 (0.1-0.6) K/mm3 Eos # (Auto) 0.1 (0-0.3) K/mm3 Baso # (Auto) 0.0 (0.0-0.1) K/mm3 Abs Immat Gran (auto) 0.02 (0.00-0.031) K/mm3 Absolute Neuts (auto) 6.7 (1.3-6.7) K/mm3 Absolute Nucleated RBC 0.000 (0.0-0.012) K/mm3 Nucleated RBC % 0.0 (0.0-0.2) % Sodium 139 (137-145) mmol/L Potassium 3.8 (3.4-5.0) mmol/L Chloride 104 (98-107) mmol/L Carbon Dioxide 24 (22-30) mmol/L Anion Gap 11 (4-12) mmol/L BUN 11 (9-20) mg/dL Creatinine 0.77 (0.7-1.3) mg/dL Estim Creat Clear Calc Not Reportable Estimated GFR > 60 (59 - ) Glucose 121 H (65-110) mg/dL Calcium 9.1 (8.4-10.2) mg/dL Total Bilirubin 0.6 (0.2-1.3) mg/dL AST 32 (17-59) U/L ALT 26 (6-50) U/L Alkaline Phosphatase 75 (38-126) U/L Total Protein 8.0 (6.3-8.2) g/dL Albumin 4.4 (3.5-5.1) g/dL Lipase 37 (23-300) U/L Urine Color Yellow (Yellow) Urine Appearance Clear (Clear) Urine pH 8.0 (5.0-9.0) Ur Specific Juda 1.020 (1.001-1.035) Urine Protein Negative (Negative) mg/dL Urine Glucose (UA) Negative (Negative) mg/dL Urine Ketones Trace H (Negative) mg/dL Ur Blood (Man) Negative (Negative) Urine Nitrate Negative (Negative) Urine Bilirubin Negative (Negative) Urine Urobilinogen 1.0 (<2.0) mg/dL Leukocyte Esterase Rfl Negative (Negative) BEATRIZ/UL Imaging Data Attestation: I personally reviewed and interpreted this imaging study as follows: My impression: Impressions Abdomen/Pelvis CT 12/30/24 05:26 Impression: No significant abnormalities seen. Radiologist's impression: ITS Impressions Abdomen/Pelvis CT 12/30/24 05:26 Impression: No significant abnormalities seen. Discharge Plan Discharge Clinical Impression: Abdominal cramping, Abdominal pain Patient Disposition: Home Condition: Stable Instructions: Antibiotic Form, Abdominal Pain (ED) Additional Instructions: All of your laboratory studies and CT scans are normal. No signs of any concerning cause to your symptoms. We will send you home with some medications to try for symptom control. Return with any emergent concerns. Follow-up with regular doctor. Patient Language: Spanish Prescriptions: New dicyclomine 20 mg tablet 20 mg PO TID PRN (Reason: abdominal pain) Qty: 14 0RF alum-mag hydroxide-simeth [Maalox Advanced] 200-200-20 mg/5 mL suspension 15 ml PO QID PRN (Reason: dyspepsia) Qty: 3000 0RF Rx Instructions: administer between meals and at bedtime Follow-up/Referrals: UNKNOWN,DOCTOR [Primary Care Provider] - Time of Disposition: 05:35
--- NOTE | 2024-12-30 05:03 | PC.NURSE ---
Genesis collected pt urine for a urinalysis around 02:18 this morning during downtime. See paper order from
[2024-12-30 06:02] VITALS: BP 109/64; PULSE 63; RESP 11; O2SAT 97
--- NOTE | 2024-12-30 06:02 | PC.NURSE ---
See paper orders and charting from downtime for further information per MD Chery.
--- NOTE | 2024-12-30 07:06 | PN_ITS ---
This report was moved to the correct visit on 01/05/2025. The original report was signed by Saad Chery MD on 12/30/24705. Interval history: Patient care issued during EMR down time. Please see scanned in paper charting for additional collateral information as well as the additional signed encounter note done for the same visit under a different account number. Please be advised this is a medical document. It is intended for lssg-rm-xniv communication. It is written in medical language and may contain unfamiliar abbreviations or verbiage. Medical documents are intended to carry relevant information, facts as evident, and the clinical opinion of the practitioner at the time of the encounter. This report may have been done utilizing a voice recognition system. Attempts have been made to correct errors. However, there may be uncorrected grammatical, spelling, and recognition errors present. The file time of this note does not necessarily represent the time the patient was seen. Report Initialized date/time: Saad Chery MD 12/30/24705 Electronically signed by: Saad Chery MD 12/30/24705 [facility]
--- NOTE | 2024-12-30 07:06 | PN_ITS ---
Subjective Date/time seen: 12/30/24 07:06 Interval history: Patient care issued during EMR down time. Please see scanned in paper charting for additional collateral information as well as the additional signed encounter note done for the same visit under a different account number. Please be advised this is a medical document. It is intended for ajfl-aj-navk communication. It is written in medical language and may contain unfamiliar abbreviations or verbiage. Medical documents are intended to carry relevant information, facts as evident, and the clinical opinion of the practitioner at the time of the encounter. This report may have been done utilizing a voice recognition system. Attempts have been made to correct errors. However, there may be uncorrected grammatical, spelling, and recognition errors present. The file time of this note does not necessarily represent the time the patient was seen. Report Initialized date/time: Saad Chery MD 12/30/24705 Electronically signed by: Saad Chery MD 12/30/24705 [facility]
--- NOTE | 2024-12-30 07:06 | PN_ITS ---
This report was moved to the correct visit on 01/05/2025. The original report was signed by Saad Chery MD on 12/30/24705. Subjective Date/time seen: 12/30/24 07:05 Interval history: Patient care issued during EMR down time. Please see scanned in paper charting for additional collateral information as well as the additional signed encounter note done for the same visit under a different account number. Please be advised this is a medical document. It is intended for vrtp-sq-yiie communication. It is written in medical language and may contain unfamiliar abbreviations or verbiage. Medical documents are intended to carry relevant information, facts as evident, and the clinical opinion of the practitioner at the time of the encounter. This report may have been done utilizing a voice recognition system. Attempts have been made to correct errors. However, there may be uncorrected grammatical, spelling, and recognition errors present. The file time of this note does not necessarily represent the time the patient was seen. Report Initialized date/time: Saad Chery MD 12/30/24705 Electronically signed by: Saad Chery MD 12/30/24705 [facility]
--- NOTE | 2024-12-30 07:06 | PN_ITS ---
This report was moved to the correct visit on 01/05/2025. The original report was signed by Saad Chery MD on 12/30/24705. Subjective Date/time seen: 12/30/24 07:06 Interval history: Patient care issued during EMR down time. Please see scanned in paper charting for additional collateral information as well as the additional signed encounter note done for the same visit under a different account number. Please be advised this is a medical document. It is intended for gqzq-wg-keqz communication. It is written in medical language and may contain unfamiliar abbreviations or verbiage. Medical documents are intended to carry relevant information, facts as evident, and the clinical opinion of the practitioner at the time of the encounter. This report may have been done utilizing a voice recognition system. Attempts have been made to correct errors. However, there may be uncorrected grammatical, spelling, and recognition errors present. The file time of this note does not necessarily represent the time the patient was seen. Report Initialized date/time: Saad Chery MD 12/30/24705 Electronically signed by: Saad Chery MD 12/30/24705 [facility]
--- NOTE | 2024-12-30 07:07 | PN_ITS ---
This report was moved to the correct visit on 01/05/2025. The original report was signed by Saad Chery MD on 12/30/24706. Subjective Date/time seen: 12/30/24 07:06 Interval history: Patient care issued during EMR down time. Please see scanned in paper charting for additional collateral information as well as the additional signed encounter note done for the same visit under a different account number. Please be advised this is a medical document. It is intended for nrst-ud-artx communication. It is written in medical language and may contain unfamiliar abbreviations or verbiage. Medical documents are intended to carry relevant information, facts as evident, and the clinical opinion of the practitioner at the time of the encounter. This report may have been done utilizing a voice recognition system. Attempts have been made to correct errors. However, there may be uncorrected grammatical, spelling, and recognition errors present. The file time of this note does not necessarily represent the time the patient was seen. Report Initialized date/time: Saad Chery MD 12/30/24706 Electronically signed by: Saad Chery MD 12/30/24706 [facility]
== END 2024-12-30 06:03 | disposition home or self-care (01) ==
PROVIDERS: Emergency Provider Student in an Organized Health Care Education/Training Program
DX: R10.11 Right upper quadrant pain (principal)
CPT/HCPCS: 36415; 74177; 80053; 81003; 83690; 85025; 99284; Q9967